=== PATIENT | male | born 1985 | race Caucasian/White ===

== ENCOUNTER 2019-03-18 13:01 | Emergency (ER) | payer MEDICAID ==
[~2019-03-18] VITALS: Ht 175.3 cm; Wt 81.6 kg
[2019-03-18 14:08] LABS: *BILIRUBIN,URIN NEGATIVE (NEGATIVE); *BLOOD, URINE NEGATIVE (NEGATIVE); *CLARITY,URINE CLEAR (CLEAR); *COLOR,URINE YELLOW (YELLOW); *KETONES,URINE NEGATIVE (NEGATIVE); *UROBILINOGEN,URINE 0.2 E.U./dl (NORMAL); LEUKOCYTE ESTERASE ,URINE NEGATIVE (NEGATIVE); NITRITE, URINE NEGATIVE (NEGATIVE); PH,URINE 6.5 (5.0-8.0); UGLUCOSE NEGATIVE (NEGATIVE)
--- NOTE | 2019-03-18 14:45 | NUR ---
Mathew, US tech at bedside performing scan.
[2019-03-18] MEDS ORDERED: CEFTRIAXONE 500 MG VIAL ONE (16:12)
[2019-03-18] MEDS ORDERED: DOXYCYCLINE HYCLATE 100 MG TABLET ONE (16:12)
[2019-03-18] MEDS ORDERED: LIDOCAINE HCL 1% 20 ML VIAL ONE (16:12)
[2019-03-18] MEDS ORDERED: CEFTRIAXONE 500 MG VIAL IM ONE (16:15)
[2019-03-18] MEDS ORDERED: DOXYCYCLINE HYCLATE 100 MG TABLET PO ONE (16:15)
[2019-03-18 16:24] VITALS: BP 115/73
--- NOTE | 2019-03-18 16:24 | NUR ---
Patient discharged to home in stable conditon. Written and verbal after care instructions given. Patient verbalizes understanding of instructions. Patient ambulated with stable gait.
[2019-03-21 11:06] LABS: *GC NAA Negative (Negative); *TRIC.VAG. NAA Negative (Negative)
== END 2019-03-18 16:25 | disposition home or self-care (01) ==
LOC: ER 13:01
DX: N41.0 Acute prostatitis (principal); F41.9 Anxiety disorder, unspecified
CPT/HCPCS: 76870; 81001; 87491; 96372; 99284; J0696; J3490; A4663